=== PATIENT | female | born 2000 | race African-American/Black ===

== ENCOUNTER 2019-04-10 15:50 | Emergency (ER) | payer MEDICAID ==
[~2019-04-10] VITALS: Ht 165.1 cm; Wt 108.9 kg
[2019-04-10 16:17] VITALS: BP 142/99
== END 2019-04-10 18:30 | disposition left against medical advice (07) ==
LOC: ER 15:50
DX: M54.9 Dorsalgia, unspecified (principal); Z53.21 Procedure and treatment not carried out due to patient leaving prior to being seen by health care provider

== ENCOUNTER 2022-03-12 14:49 | Inpatient (IN) | payer MEDICAID ==
[~2022-03-12] VITALS: Ht 165.1 cm; Wt 122.4 kg
[2022-03-12 15:24] LABS: Basophils # (auto) 0 10 ^3/uL (0-0.2); Basophils % (auto) 0.4 % (0.0-2.0); Eosinophils # (auto) 0.1 10 ^3/uL (0-0.8); Eosinophils % (auto) 0.8 % (0.0-7.0); Hematocrit 43.6 % (36.0-46.0); Lymphocytes # (auto) 2.4 10 ^3/uL (0.4-5.4); Lymphocytes % (auto) 28.8 % (10.0-50.0); Mean Corpuscular Hgb Conc. 32.1 g/dL (32.0-36.0); Mean Corpuscular Volume 87.3 fL (80.0-100.0); Monocytes # (auto) 0.5 10 ^3/uL (0-1.3); Monocytes % (auto) 6.2 % (0.0-12.0); Neutrophils # (auto) 5.3 10 ^3/uL (1.6-8.6); Neutrophils % (auto) 63.8 % (37.0-80.0); Nucleated Red Blood Cells % 0.2 %; Red Cell Distribution Width 13.9 % (11.8-14.3); White Blood Cell 8.2 10^3/uL (4.4-10.8)
[2022-03-12 15:41] LABS: Albumin 4.2 g/dL (3.4-5.0); Calcium 9.2 mg/dL (8.5-10.1); Potassium 3.8 mmol/L (3.5-5.1)
[2022-03-12 15:43] LABS: BUN/Creatinine Ratio 15.4
[2022-03-12 15:46] LABS: Total Protein 7.6 g/dL (6.4-8.2)
[2022-03-12] MEDS ORDERED: ASPirin 325 MG TAB PO ONE (18:45)
[2022-03-12] MEDS ORDERED: ONDANSETRON HCL 4 MG/2 ML VIAL IV PRN (21:15)
[2022-03-12] MEDS ORDERED: MORPHINE SULFATE INJ 2 MG/ml SYRG IV PRN ×2 (21:15)
[2022-03-12] MEDS ORDERED: NITROGLYCERIN 0.4 MG SL TAB SL PRN (21:15)
[2022-03-12] MEDS: SACUBITRIL-VALSARTAN 24mg/26mg TAB PO SCH (22:00)
[2022-03-13] VITALS (7 sets, daily range): BP systolic 98–121; BP diastolic 51–77
[2022-03-13 04:56] LABS: Basophils # (auto) 0 10 ^3/uL (0-0.2); Basophils % (auto) 0.3 % (0.0-2.0); Eosinophils # (auto) 0.1 10 ^3/uL (0-0.8); Hematocrit 40.2 % (36.0-46.0); Hemoglobin 13.4 g/dL (12.2-16.2); Lymphocytes # (auto) 3.5 10 ^3/uL (0.4-5.4); Lymphocytes % (auto) 36.6 % (10.0-50.0); Mean Corpuscular Hemoglobin 29.2 pg (28.0-32.0); Mean Corpuscular Hgb Conc. 33.3 g/dL (32.0-36.0); Mean Corpuscular Volume 87.6 fL (80.0-100.0); Monocytes # (auto) 0.6 10 ^3/uL (0-1.3); Monocytes % (auto) 6.5 % (0.0-12.0); Neutrophils # (auto) 5.3 10 ^3/uL (1.6-8.6); Neutrophils % (auto) 55.6 % (37.0-80.0); Nucleated Red Blood Cells % 0.1 %; Red Blood Cells 4.59 10^6/uL (4.0-5.20); White Blood Cell 9.5 10^3/uL (4.4-10.8)
[2022-03-13 05:12] LABS: BUN/Creatinine Ratio 22.7; Potassium 3.7 mmol/L (3.5-5.1)
[2022-03-13] MEDS: ASPirin-EC 81 mg tab PO SCH (08:53)
[2022-03-13] MEDS: SACUBITRIL-VALSARTAN 24mg/26mg TAB PO SCH ×2 (08:54→22:17)
[2022-03-13] MEDS: ENOXAPARIN SOD 40 MG/0.4 ML SYRINGE SC SCH (08:55)
[2022-03-13] MEDS: METOPROLOL SUCCINATE XL 50 MG TAB PO SCH (08:55)
[2022-03-13] MEDS ORDERED: OPTISON 3ml Vial for INJ IV ONE (14:23)
[2022-03-14 05:00] VITALS: BP 98/61
[2022-03-14] MEDS: ASPirin-EC 81 mg tab PO SCH (08:59)
[2022-03-14 09:00] VITALS: BP 104/62
[2022-03-14] MEDS: SACUBITRIL-VALSARTAN 24mg/26mg TAB PO SCH ×2 (09:00→21:50)
[2022-03-14] MEDS: METOPROLOL SUCCINATE XL 50 MG TAB PO SCH (09:00)
[2022-03-14] MEDS: ENOXAPARIN SOD 40 MG/0.4 ML SYRINGE SC SCH (09:01)
[2022-03-14] MEDS ORDERED: AMIODARONE HCL 200 MG TAB PO ONE (09:45)
[2022-03-14] MEDS ORDERED: AMIODARONE HCL 200 MG TAB PO SCH (10:00)
[2022-03-14] MEDS ORDERED: APIXABAN 5 MG TAB PO SCH (10:00)
[2022-03-14] MEDS: APIXABAN 5 MG TAB PO SCH ×2 (10:00→21:50)
[2022-03-14] MEDS: IVABRADINE 5 MG TAB PO SCH ×2 (10:40→21:53)
[2022-03-14] MEDS ORDERED: METO25TA5 PO (10:54)
[2022-03-14] MEDS ORDERED: IVAB1.7T PO (10:54)
[2022-03-14] MEDS ORDERED: BUME1TAB25 PO (10:54)
[2022-03-14] MEDS ORDERED: SACU1TAB PO (10:54)
[2022-03-14 13:00] VITALS: BP 121/75
[2022-03-14] MEDS: ALPRAZolam 0.5 MG TAB PO PRN ×2 (15:15→21:58)
[2022-03-14 17:00] VITALS: BP 112/63
[2022-03-14] MEDS: AMIODARONE HCL 200 MG TAB PO SCH (21:51)
[2022-03-14 22:23] VITALS: BP 110/67
[2022-03-15 05:13] VITALS: BP 92/55
[2022-03-15] MEDS: APIXABAN 5 MG TAB PO SCH (10:06)
[2022-03-15] MEDS: AMIODARONE HCL 200 MG TAB PO SCH (10:07)
[2022-03-15] MEDS: METOPROLOL SUCCINATE XL 50 MG TAB PO SCH (10:08)
[2022-03-15] MEDS: IVABRADINE 5 MG TAB PO SCH (10:09)
[2022-03-15] MEDS: SACUBITRIL-VALSARTAN 24mg/26mg TAB PO SCH (10:09)
[2022-03-15] MEDS ORDERED: AMIO200T33 PO (11:45)
[2022-03-15] MEDS ORDERED: APIX5TAB PO (11:46)
[2022-03-15 13:00] VITALS: BP 122/80
[2022-03-15 13:44] VITALS: BP 106/70
[2022-04-08] MEDS ORDERED: SPIR25TA8 PO (08:40)
[2022-04-08] MEDS ORDERED: SACU1TAB4 PO (08:40)
== END 2022-03-15 15:41 | disposition home or self-care (01) | DRG 201 ==
LOC: ER 14:49 → EDUNIT# 14:49 → EDBD 14:49 → TELE 21:11 → TELE-CENTR 23:30
PROVIDERS: ADMIT Hospitalist; ATTEND Internal Medicine
DX: I48.91 Unspecified atrial fibrillation (principal); I21.4 Non-ST elevation (NSTEMI) myocardial infarction; I42.8 Other cardiomyopathies; T82.119A Breakdown (mechanical) of unspecified cardiac electronic device, initial encounter; I11.0 Hypertensive heart disease with heart failure; I50.9 Heart failure, unspecified; E66.01 Morbid (severe) obesity due to excess calories; Y71.2 Prosthetic and other implants, materials and accessory cardiovascular devices associated with adverse incidents; F41.9 Anxiety disorder, unspecified; Z20.822 Contact with and (suspected) exposure to COVID-19; I47.1 Supraventricular tachycardia; Z86.79 Personal history of other diseases of the circulatory system; Z95.810 Presence of automatic (implantable) cardiac defibrillator; Z68.41 Body mass index [BMI] 40.0-44.9, adult; Y92.89 Other specified places as the place of occurrence of the external cause
CPT/HCPCS: 36415; 71045; 80048; 80053; 83880; 84484; 85025; 93005; 93306; 99291; G0378; Q9956

== ENCOUNTER 2022-10-18 11:51 | Inpatient (IN) | payer MEDICAID ==
[~2022-10-18] VITALS: Ht 165.1 cm; Wt 119.2 kg
[~2022-10-18 11:51] MED LIST: AMIO200T33 PO; APIX5TAB PO; BUME1TAB25 PO; IVAB1.7T PO; METO25TA5 PO; SACU1TAB PO; SACU1TAB4 PO; SPIR25TA8 PO
[2022-10-18 14:23] LABS: Basophils # (auto) 0 10 ^3/uL (0-0.2); Basophils % (auto) 0.3 % (0.0-2.0); Eosinophils # (auto) 0 10 ^3/uL (0-0.8); Eosinophils % (auto) 0.2 % (0.0-7.0); Hematocrit 41.1 % (36.0-46.0); Hemoglobin 13.5 g/dL (12.2-16.2); Lymphocytes # (auto) 2.5 10 ^3/uL (0.4-5.4); Lymphocytes % (auto) 20.8 % (10.0-50.0); Mean Corpuscular Hemoglobin 27.7 pg (28.0-32.0); Mean Corpuscular Hgb Conc. 32.9 g/dL (32.0-36.0); Mean Corpuscular Volume 84.2 fL (80.0-100.0); Monocytes # (auto) 0.6 10 ^3/uL (0-1.3); Monocytes % (auto) 4.6 % (0.0-12.0); Neutrophils # (auto) 8.9 10 ^3/uL (1.6-8.6); Neutrophils % (auto) 74.1 % (37.0-80.0); Nucleated Red Blood Cells % 0.1 %; Red Blood Cells 4.89 10^6/uL (4.0-5.20); Red Cell Distribution Width 12.5 % (11.8-14.3)
[2022-10-18 14:46] LABS: INR 1.04 (0.9-1.15); Partial Thromboplastin Time 28.7 sec (24.6-33.4)
[2022-10-18 16:41] LABS: Urine Bacteria FEW /hpf (None Seen); Urine Blood 3+ /uL (Negative); Urine Mucus FEW (None Seen); Urine WBC 1937 /hpf (0 - 5); Urine WBC Clumps PRESENT /hpf (None Seen)
[2022-10-18] MEDS ORDERED: MEXI150C15 PO (16:59)
[2022-10-18] MEDS ORDERED: NITROGLYCERIN 0.4 MG SL TAB SL PRN (17:30)
[2022-10-18] MEDS ORDERED: MORPHINE SULFATE 4 MG/ML SYR/VIAL IV PRN (17:30)
[2022-10-18] MEDS ORDERED: ONDANSETRON HCL 4 MG/2 ML VIAL IV PRN (17:30)
[2022-10-18] MEDS ORDERED: ACETAMINOPHEN 325 MG TAB PO PRN (17:30)
[2022-10-18] MEDS ORDERED: SODIUM ZIRCONIUM CYCL 10 GM PAK PO ONE (18:00)
[2022-10-18] MEDS: ASPirin 81 mg TAB PO SCH (18:22)
[2022-10-18 19:16] LABS: Alanine Aminotransferase 92 U/L (13-56); Alkaline Phosphatase 50 U/L (45-117); Anion Gap 12 (5-15); Aspartate Aminotransferase 37 U/L (15-37); BUN/Creatinine Ratio 23.4; Blood Urea Nitrogen 11 mg/dL (7-18); Carbon Dioxide 19 mmol/L (21-32); Chloride 112 mmol/L (98-107); GFR African American 211 mL/min; GFR Non-African American 175 mL/min; Glucose 105 mg/dL (74-106); Potassium 4.4 mmol/L (3.5-5.1); Sodium 143 mmol/L (136-145)
[2022-10-18 19:17] LABS: Albumin 3.6 g/dL (3.4-5.0); Bilirubin, Total 0.6 mg/dL (0.2-1.0); Calcium 9.1 mg/dL (8.5-10.1); Total Protein 6.6 g/dL (6.4-8.2)
[2022-10-18] MEDS ORDERED: IOHEXOL 350 MG/ML 100ML IJ ONE (19:22)
[2022-10-18] MEDS: ENTRESTO 97-103MG TABLET PO SCH (22:00)
[2022-10-18] MEDS ORDERED: AMIODARONE HCL 200 MG TAB PO SCH (22:00)
[2022-10-18] MEDS ORDERED: ENOXAPARIN SOD 100 MG/1 ML SYRINGE SC SCH (22:00)
[2022-10-18] MEDS: APIXABAN 5 MG TAB PO SCH (22:00)
[2022-10-18] MEDS: MEXILETINE HYDROCHLORIDE 150 MG CAP PO SCH (22:42)
[2022-10-18] MEDS: IVABRADINE 5 MG TAB PO SCH (23:23)
[2022-10-19 00:22] LABS: Albumin 3.3 g/dL (3.4-5.0); BUN/Creatinine Ratio 23.9; Calcium 9.4 mg/dL (8.5-10.1); Potassium 3.8 mmol/L (3.5-5.1)
[2022-10-19 00:24] LABS: Bilirubin, Total 0.9 mg/dL (0.2-1.0); Total Protein 6.8 g/dL (6.4-8.2)
[2022-10-19 03:05] VITALS: BP 97/58
[2022-10-19 06:16] LABS: Basophils # (auto) 0 10 ^3/uL (0-0.2); Basophils % (auto) 0.4 % (0.0-2.0); Eosinophils # (auto) 0 10 ^3/uL (0-0.8); Eosinophils % (auto) 0.6 % (0.0-7.0); Hematocrit 38.7 % (36.0-46.0); Hemoglobin 12.8 g/dL (12.2-16.2); Lymphocytes # (auto) 2.3 10 ^3/uL (0.4-5.4); Lymphocytes % (auto) 28.6 % (10.0-50.0); Mean Corpuscular Hemoglobin 27.9 pg (28.0-32.0); Mean Corpuscular Hgb Conc. 33.1 g/dL (32.0-36.0); Mean Corpuscular Volume 84.4 fL (80.0-100.0); Monocytes # (auto) 0.6 10 ^3/uL (0-1.3); Monocytes % (auto) 7.1 % (0.0-12.0); Neutrophils # (auto) 5.2 10 ^3/uL (1.6-8.6); Neutrophils % (auto) 63.3 % (37.0-80.0); Nucleated Red Blood Cells % 0.1 %; Red Blood Cells 4.59 10^6/uL (4.0-5.20); Red Cell Distribution Width 12.6 % (11.8-14.3); White Blood Cell 8.2 10^3/uL (4.4-10.8)
[2022-10-19 06:33] LABS: Albumin 3.2 g/dL (3.4-5.0); Calcium 9.4 mg/dL (8.5-10.1); Potassium 4.3 mmol/L (3.5-5.1)
[2022-10-19 06:36] LABS: Total Protein 6.1 g/dL (6.4-8.2)
[2022-10-19 08:00] VITALS: BP 107/55
[2022-10-19] MEDS ORDERED: SPIRONOLACTONE 25 MG TAB PO SCH (10:00)
[2022-10-19] MEDS ORDERED: SACUBITRIL-VALSARTAN 24mg/26mg TAB PO SCH (10:00)
[2022-10-19] MEDS ORDERED: METOPROLOL TARTRATE 25 MG TAB PO SCH (10:00)
[2022-10-19] MEDS ORDERED: OPTISON 3ml Vial for INJ IV ONE (10:18)
[2022-10-19] MEDS: MEXILETINE HYDROCHLORIDE 150 MG CAP PO SCH ×2 (11:26→21:18)
[2022-10-19] MEDS: METOPROLOL SUCCINATE XL 50 MG TAB PO SCH (11:27)
[2022-10-19] MEDS: ASPirin 81 mg TAB PO SCH (11:27)
[2022-10-19] MEDS: DOCUSATE SOD 100 MG CAP PO SCH (11:28)
[2022-10-19] MEDS: ENTRESTO 97-103MG TABLET PO SCH ×2 (11:28→21:17)
[2022-10-19] MEDS: FUROSEMIDE 40 MG TAB PO SCH (11:30)
[2022-10-19] MEDS: APIXABAN 5 MG TAB PO SCH ×2 (11:30→21:18)
[2022-10-19 12:00] VITALS: BP 106/72
[2022-10-19] MEDS: busPIRone HCL 10 MG TAB PO SCH ×2 (13:07→21:18)
[2022-10-19] MEDS: IVABRADINE 5 MG TAB PO SCH ×2 (13:07→21:18)
[2022-10-19 16:00] VITALS: BP 99/56
[2022-10-19 22:00] VITALS: BP 100/51
[2022-10-20 05:00] VITALS: BP 104/54
[2022-10-20 07:30] VITALS: BP 124/67
[2022-10-20] MEDS: ENTRESTO 97-103MG TABLET PO SCH ×2 (08:59→22:50)
[2022-10-20] MEDS: APIXABAN 5 MG TAB PO SCH ×3 (08:59→22:51)
[2022-10-20] MEDS: FUROSEMIDE 40 MG TAB PO SCH (09:00)
[2022-10-20] MEDS: cefTRIAXone 1GM/50ML D5W 50 ML IV SCH (09:12)
[2022-10-20] MEDS: busPIRone HCL 10 MG TAB PO SCH ×2 (09:13→22:51)
[2022-10-20] MEDS: ASPirin 81 mg TAB PO SCH (09:13)
[2022-10-20] MEDS: IVABRADINE 5 MG TAB PO SCH ×2 (09:14→22:51)
[2022-10-20] MEDS: MEXILETINE HYDROCHLORIDE 150 MG CAP PO SCH ×2 (09:14→22:52)
[2022-10-20] MEDS: DOCUSATE SOD 100 MG CAP PO SCH (09:14)
[2022-10-20] MEDS: METOPROLOL SUCCINATE XL 50 MG TAB PO SCH (09:15)
[2022-10-20 09:17] VITALS: BP 115/54
[2022-10-20 13:04] VITALS: BP 110/63
[2022-10-20] MEDS ORDERED: LORazepam 2MG/ML-1ML VIAL IV PRN (14:45)
[2022-10-20 17:25] VITALS: BP 113/64
[2022-10-20 22:00] VITALS: BP 115/65
[2022-10-21 05:00] VITALS: BP 96/40
[2022-10-21 07:30] VITALS: BP 115/54
[2022-10-21 09:00] VITALS: BP 101/54
[2022-10-21] MEDS: FUROSEMIDE 40 MG TAB PO SCH (10:00)
[2022-10-21] MEDS: APIXABAN 5 MG TAB PO SCH ×2 (10:00→21:40)
[2022-10-21] MEDS: ASPirin 81 mg TAB PO SCH (10:16)
[2022-10-21] MEDS: ENTRESTO 97-103MG TABLET PO SCH ×2 (10:16→22:00)
[2022-10-21] MEDS: cefTRIAXone 1GM/50ML D5W 50 ML IV SCH (10:16)
[2022-10-21] MEDS: DOCUSATE SOD 100 MG CAP PO SCH (10:17)
[2022-10-21] MEDS: busPIRone HCL 10 MG TAB PO SCH ×2 (10:17→22:33)
[2022-10-21] MEDS: MEXILETINE HYDROCHLORIDE 150 MG CAP PO SCH ×2 (10:19→22:34)
[2022-10-21] MEDS: METOPROLOL SUCCINATE XL 50 MG TAB PO SCH (10:20)
[2022-10-21] MEDS: IVABRADINE 5 MG TAB PO SCH ×2 (10:21→22:33)
[2022-10-21 13:00] VITALS: BP 105/60
[2022-10-21 17:05] VITALS: BP 104/49
[2022-10-21 22:00] VITALS: BP 91/56
[2022-10-22 05:00] VITALS: BP 94/54
[2022-10-22] MEDS: busPIRone HCL 10 MG TAB PO SCH ×2 (08:08→21:13)
[2022-10-22] MEDS: ASPirin 81 mg TAB PO SCH (08:08)
[2022-10-22] MEDS: FUROSEMIDE 40 MG TAB PO SCH (08:09)
[2022-10-22] MEDS: IVABRADINE 5 MG TAB PO SCH ×2 (08:09→21:14)
[2022-10-22] MEDS: DOCUSATE SOD 100 MG CAP PO SCH (08:09)
[2022-10-22] MEDS: APIXABAN 5 MG TAB PO SCH ×2 (08:09→21:17)
[2022-10-22] MEDS: cefTRIAXone 1GM/50ML D5W 50 ML IV SCH (08:10)
[2022-10-22] MEDS: MEXILETINE HYDROCHLORIDE 150 MG CAP PO SCH ×2 (08:16→21:13)
[2022-10-22] MEDS: ENTRESTO 97-103MG TABLET PO SCH ×2 (08:22→21:14)
[2022-10-22] MEDS: METOPROLOL SUCCINATE XL 50 MG TAB PO SCH (08:22)
[2022-10-22 09:00] VITALS: BP 102/60
[2022-10-22] MEDS ORDERED: LORazepam 0.5 MG TAB PO PRN (12:15)
[2022-10-22] MEDS ORDERED: levoFLOXacin 500 MG TAB PO ONE (12:15)
[2022-10-22 13:24] VITALS: BP 103/43
[2022-10-22] MEDS ORDERED: KETOROLAC TROMETH 30 MG/ML 1ML VIAL IM ONE (13:45)
[2022-10-22 17:17] VITALS: BP 106/67
[2022-10-22 22:00] VITALS: BP 103/63
[2022-10-23] VITALS (7 sets, daily range): BP systolic 81–156; BP diastolic 28–89
[2022-10-23] MEDS: ASPirin 81 mg TAB PO SCH (09:38)
[2022-10-23] MEDS: MEXILETINE HYDROCHLORIDE 150 MG CAP PO SCH ×2 (09:38→22:52)
[2022-10-23] MEDS: ENTRESTO 97-103MG TABLET PO SCH ×2 (09:38→21:58)
[2022-10-23] MEDS: levoFLOXacin 500 MG TAB PO SCH (09:39)
[2022-10-23] MEDS: IVABRADINE 5 MG TAB PO SCH ×2 (09:40→22:00)
[2022-10-23] MEDS: busPIRone HCL 10 MG TAB PO SCH ×2 (09:40→21:55)
[2022-10-23] MEDS: APIXABAN 5 MG TAB PO SCH ×2 (09:47→21:55)
[2022-10-23] MEDS: FUROSEMIDE 40 MG TAB PO SCH (09:47)
[2022-10-23] MEDS: DOCUSATE SOD 100 MG CAP PO SCH (09:47)
[2022-10-23] MEDS: METOPROLOL SUCCINATE XL 50 MG TAB PO SCH (09:48)
[2022-10-23] MEDS ORDERED: MAGNESIUM SULFATE 1GM/100ML 100 ML IV ONE (14:00)
[2022-10-23] MEDS ORDERED: AMIODARONE HCL 200 MG TAB PO ONE (14:15)
[2022-10-23] MEDS ORDERED: MAGNESIUM OXIDE 400 MG TAB PO ONE (16:15)
[2022-10-23] MEDS: SACUBITRIL-VALSARTAN 24mg/26mg TAB PO SCH (21:55)
[2022-10-23] MEDS: AMIODARONE HCL 200 MG TAB PO SCH (21:59)
[2022-10-24 05:00] VITALS: BP 113/62
[2022-10-24 08:38] VITALS: BP 101/56
[2022-10-24] MEDS ORDERED: METOPROLOL SUCCINATE XL 50 MG TAB PO SCH (10:00)
[2022-10-24] MEDS: AMIODARONE HCL 200 MG TAB PO SCH (10:00)
[2022-10-24] MEDS ORDERED: MAGNESIUM OXIDE 400 MG TAB PO SCH (10:00)
[2022-10-24] MEDS: DOCUSATE SOD 100 MG CAP PO SCH (10:00)
[2022-10-24] MEDS: ENTRESTO 97-103MG TABLET PO SCH (10:00)
[2022-10-24] MEDS: levoFLOXacin 500 MG TAB PO SCH (10:14)
[2022-10-24] MEDS: busPIRone HCL 10 MG TAB PO SCH (10:14)
[2022-10-24] MEDS: SACUBITRIL-VALSARTAN 24mg/26mg TAB PO SCH (10:16)
[2022-10-24] MEDS: ASPirin 81 mg TAB PO SCH (10:16)
[2022-10-24] MEDS: APIXABAN 5 MG TAB PO SCH (10:29)
[2022-10-24] MEDS: IVABRADINE 5 MG TAB PO SCH (10:29)
[2022-10-24] MEDS: FUROSEMIDE 40 MG TAB PO SCH (10:30)
[2022-10-24] MEDS: MEXILETINE HYDROCHLORIDE 150 MG CAP PO SCH (10:33)
[2022-10-24 12:40] VITALS: BP 116/73
[2022-10-24 17:02] VITALS: BP 113/56
== END 2022-10-24 19:00 | disposition home or self-care (01) | DRG 196 ==
LOC: ER 11:51 → EDBD 11:51 → TELE 17:24 → TELE-EAST 10-19 02:00
PROVIDERS: ADMIT Nurse Practitioner Family; ATTEND Nurse Practitioner Acute Care
PROC: 4B02XTZ Measurement of Cardiac Defibrillator, External Approach (ICD-10-PCS; principal; 2022-10-19)
DX: I49.01 Ventricular fibrillation (principal); E87.0 Hyperosmolality and hypernatremia; I21.A1 Myocardial infarction type 2; I42.8 Other cardiomyopathies; I47.20 Ventricular tachycardia, unspecified; I50.22 Chronic systolic (congestive) heart failure; I11.0 Hypertensive heart disease with heart failure; N30.90 Cystitis, unspecified without hematuria; D72.829 Elevated white blood cell count, unspecified; E87.5 Hyperkalemia; F41.9 Anxiety disorder, unspecified; E66.01 Morbid (severe) obesity due to excess calories; R79.89 Other specified abnormal findings of blood chemistry; Z20.822 Contact with and (suspected) exposure to COVID-19; I48.0 Paroxysmal atrial fibrillation; Z82.49 Family history of ischemic heart disease and other diseases of the circulatory system; Z86.16 Personal history of COVID-19; Z95.810 Presence of automatic (implantable) cardiac defibrillator; Z68.41 Body mass index [BMI] 40.0-44.9, adult
CPT/HCPCS: 36415; 71275; 80053; 81001; 83735; 83880; 83930; 84484; 85025; 85379; 85610; 85730; 87426; 93005; 93306; 99291; G0378; J0696; J1885; Q9956